=== PATIENT | male | born 1945 | race Caucasian/White ===

== ENCOUNTER 2019-09-11 17:40 | Inpatient (IN) ==
[2019-09-11] MEDS ORDERED: Ondansetron 4 MG/2 ML VIAL IVP STA (18:07)
[2019-09-11 18:08] LABS: Hematocrit 39.1 % (37.5-50.1); Hemoglobin 13.3 g/dL (12.9-16.9); Mean Corpuscular Hemoglobin 33.1 pg (28.0-33.3); Mean Corpuscular Volume 97.3 fL (83.0-100.0); Mean Platelet Volume 9.9 fL (9.4-12.4); Platelet Count 160 K/mcL (140-400); Red Blood Count 4.02 M/mcL (4.19-5.50); Red Cell Distribution Width 12.5 % (11.5-14.5); White Blood Count 20.1 K/mcL (4.3-11.1)
[2019-09-11] MEDS ORDERED: Ipratropium/Albuterol Neb 3 ML IH ONE (18:11)
[2019-09-11] MEDS ORDERED: Piperacillin/Tazobactam 3.375 GM in Water for inj. (sterile) 20 ML IVP ONE (18:17)
[2019-09-11 18:24] LABS: INR 1.4
[2019-09-11 18:26] LABS: Activated Partial Thrombo Time 30.9 Seconds (26.0-36.0)
[2019-09-11] MEDS: 0.9 % Sodium Chloride 1,000 ML IVC ONE ×2 (18:28→20:47)
[2019-09-11 18:30] LABS: Lymphocytes # 1.2 K/mcL (0.6-4.6); Neutrophils # 18.9 K/mcL (1.6-8.9); Platelet Estimate Normal (Normal)
[2019-09-11] MEDS ORDERED: 0.9 % Sodium Chloride 1,000 ML IVC ONE ×2 (18:38→22:19)
[2019-09-11] MEDS ORDERED: 0.9 % Sodium Chloride 500 ML IVC ONE (18:39)
[2019-09-11] MEDS ORDERED: 0.9 % Sodium Chloride 250 ML IVC ONE (18:40)
[2019-09-11 18:44] LABS: Alanine Aminotransferase 28 Units/L (7-52); Albumin 3.8 g/dL (3.5-5.7); Albumin/Globulin Ratio 1.2 (1.1-2.2); Alkaline Phosphatase 71 Units/L (34-104); Aspartate Amino Transferase 35 Units/L (13-39); BUN/Creatinine Ratio 17 (6-26); Bilirubin,Direct 0.2 mg/dL (0.0-0.2); Bilirubin,Indirect 0.4 mg/dL (0.0-1.0); Bilirubin,Total 0.6 mg/dL (0.3-1.0); Blood Urea Nitrogen 40 mg/dL (8-23); Carbon Dioxide 19 mEq/L (23-29); Chloride 100 mEq/L (98-107); Ethanol < 10 mg/dL (Less than 10); Globulin 3.3 g/dL (2.4-3.5); Glucose 150 mg/dL (70-105); Lipase 22 Units/L (11-82); Osmolality,Calculated 283 (280-300); Potassium 4.4 mEq/L (3.5-5.1); Sodium 130 mEq/L (136-145); Thyroid Stimulating Hormone 1.085 mcIU/mL (0.340-5.600); Total Protein 7.1 g/dL (6.4-8.9); Troponin I 0.65 ng/mL (< 0.04); eGFR For African Americans 34 (> 60); eGFR For Non-African Americans 28 (> 60)
[2019-09-11 19:43] LABS: Bilirubin,Urine Small (Negative); Blood,Urine Large (Negative); Clarity,Urine Turbid (Clear); Color,Urine Dark Yellow (Yellow); Glucose,Urine (UA) Normal (Normal); Ketones,Urine Trace mg/dL (Negative); Leukocyte Esterase,Urine Large (Negative); Nitrite,Urine Negative (Negative); PH,Urine 5.5 pH Units (5.0-8.0); Protein,Urine >=300 mg/dL (Neg-Trace); Specific Gravity,Urine 1.026 (1.010-1.025); Urobilinogen,Urine Normal (Normal)
[2019-09-11 19:45] LABS: Bacteria,Urine Moderate per hpf (None-Few); Hyaline Casts,Urine None Seen per lpf (None-Few); RBC,Urine 30-50 per hpf (0-3); Squamous Epithelial Cell,Urine Many per lpf (None-Few); WBC,Urine TNTC per hpf (0-3)
[2019-09-11 19:58] LABS: Amphetamine Screen,Urine Negative ng/mL (Cutoff=1000); Barbiturate Screen,Urine Negative ng/mL (Cutoff=200); Benzodiazepines Screen,Urine Negative ng/mL (Cutoff=200); Cannabinoid Screen,Urine Positive ng/mL (Cutoff = 50); Cocaine Screen,Urine Negative ng/mL (Cutoff= 300); Opiate Screen,Urine Negative ng/mL (Cutoff=300); Phencyclidine Screen,Urine Negative ng/mL (Cutoff=25)
[2019-09-11] MEDS ORDERED: 0.9 % Sodium Chloride 250 ML ONE (20:28)
[2019-09-11] MEDS ORDERED: *HR* Norepinephrine 4 MG/4 ML VIAL IVC ONE (20:28)
[2019-09-11] MEDS ORDERED: 0.9 % Sodium Chloride 1,000 ML ONE (20:40)
[2019-09-11] MEDS: Norepinephrine 4 MG in 0.9 % Sodium Chloride 250 ML IVC SCH (20:40)
[2019-09-11] MEDS ORDERED: Naloxone 0.4 MG/ML INJ IVP PRN (21:31)
[2019-09-11] MEDS ORDERED: Acetaminophen 325 MG TABLET PO PRN (22:19)
[2019-09-12] MEDS: 0.9 % Sodium Chloride 1,000 ML IVC SCH ×2 (01:06→07:01)
[2019-09-12] MEDS: Piperacillin/Tazobactam 3.375 GM in 0.9 % Sodium Chloride Mini Bag 100 ML IVPB SCH ×3 (01:43→18:44)
[2019-09-12] MEDS ORDERED: 0.9 % Sodium Chloride 500 ML IVC ONE (02:24)
[2019-09-12] MEDS ORDERED: Ibuprofen 400 MG TABLET PO PRN (02:25)
[2019-09-12 04:31] LABS: Eosinophils % 0.1 %; Mean Corpuscular Volume 100.3 fL (83.0-100.0); Red Cell Distribution Width 12.7 % (11.5-14.5)
[2019-09-12 04:35] LABS: Basophils % 0.1 %; Hematocrit 32.9 % (37.5-50.1); Hemoglobin 10.9 g/dL (12.9-16.9); Immature Granulocytes % 2.3 % (0-4); Immature Platelets 4.3 % (1.1-6.1); Lymphocytes % 4.9 %; Mean Corpuscular HGB Conc 33.1 g/dL (31.6-35.5); Mean Corpuscular Hemoglobin 33.2 pg (28.0-33.3); Mean Platelet Volume 10.3 fL (9.4-12.4); Monocytes # 0.7 K/mcL (0.0-1.3); Monocytes % 3.2 %; Neutrophils # 18.5 K/mcL (1.6-8.9); Platelet Count 108 K/mcL (140-400); Red Blood Count 3.28 M/mcL (4.19-5.50); Segmented Neutrophils % 89.4 %; White Blood Count 20.7 K/mcL (4.3-11.1)
[2019-09-12 04:46] LABS: Calcium 7.5 mg/dL (8.6-10.3); Potassium 4.2 mEq/L (3.5-5.1)
[2019-09-12] MEDS ORDERED: 0.9 % Sodium Chloride 1,000 ML IVC ONE (05:08)
[2019-09-12] MEDS ORDERED: Hydrocortisone Sodium Succ 100 MG/2 ML VIAL IVP ONE (05:25)
[2019-09-12] MEDS: *HR* Heparin 5,000 UNIT/ML VIAL SQ SCH ×2 (05:43→18:44)
[2019-09-12] MEDS: Norepinephrine 4 MG in 0.9 % Sodium Chloride 250 ML IVC SCH ×2 (05:59→09:44)
[2019-09-12] MEDS ORDERED: Saliva Stimulant 100ml BOTTLE PO PRN (08:15)
[2019-09-12] MEDS ORDERED: Aminoglycoside Consult 1 EACH MC ONE (09:19)
[2019-09-12 13:00] LABS: Calcium 7.1 mg/dL (8.6-10.3); Magnesium 1.2 mg/dL (1.6-2.6); Phosphorous 4.1 mg/dL (2.7-4.5); Potassium 5.3 mEq/L (3.5-5.1); Troponin I 2.32 ng/mL (< 0.04)
[2019-09-12] MEDS: Calcium Gluconate 1gm/50mL 1 GM/50 ML BAG IVPB SCH ×2 (14:58→16:06)
[2019-09-12] MEDS: Sodium Bicarbonate 75 MEQ in 0.45 % Sodium Chloride 1,000 ML IVC SCH (18:45)
[2019-09-12] MEDS ORDERED: Perflutren Lipid Microsphere 1.3 ML in 0.9 % Sodium Chloride 8.7 ML IVP ONE (18:51)
[2019-09-12 18:54] LABS: Hepatitis B Surface Antibody < 3.10 mIU/mL
[2019-09-12] MEDS ORDERED: *HR* Heparin 5,000 UNIT/ML VIAL IVP PRN ×2 (18:54)
[2019-09-12] MEDS ORDERED: *HR* Heparin 5,000 UNIT/ML VIAL IVP ONE (18:54)
[2019-09-12 19:04] LABS: Hepatitis B Surface Antigen Nonreactive (Nonreactive)
[2019-09-12] MEDS ORDERED: Heparin 25,000 UNIT/250 ML D5W 25,000 UNIT/250 ML IV.SOLN IVC SCH (19:30)
[2019-09-12 19:32] LABS: Hepatitis B Core IgM Nonreactive (Nonreactive)
[2019-09-12] MEDS: Ipratropium/Albuterol Neb 3 ML IH PRN (20:36)
[2019-09-12 20:51] LABS: Potassium 4.8 mEq/L (3.5-5.1)
[2019-09-12 21:22] LABS: Hematocrit 36.9 % (37.5-50.1); Hemoglobin 12.3 g/dL (12.9-16.9); Immature Platelets 7.1 % (1.1-6.1); Mean Corpuscular HGB Conc 33.3 g/dL (31.6-35.5); Mean Corpuscular Hemoglobin 33.4 pg (28.0-33.3); Mean Corpuscular Volume 100.3 fL (83.0-100.0); Red Blood Count 3.68 M/mcL (4.19-5.50); Red Cell Distribution Width 13.2 % (11.5-14.5); White Blood Count 29.1 K/mcL (4.3-11.1)
[2019-09-12 21:27] LABS: Platelet Count 90 K/mcL (140-400)
[2019-09-12 21:36] LABS: INR 1.7; Lymphocytes # 2.9 K/mcL (0.6-4.6); Neutrophils # 26.2 K/mcL (1.6-8.9); Platelet Estimate Decreased (Normal); Prothrombin Time 19.3 Seconds (9.4-12.1)
[2019-09-12] MEDS ORDERED: Acetaminophen 325 MG TABLET PO PRN (23:32)
[2019-09-13] MEDS: Piperacillin/Tazobactam 3.375 GM in 0.9 % Sodium Chloride Mini Bag 100 ML IVPB SCH ×3 (01:56→16:49)
[2019-09-13 02:23] LABS: Red Cell Distribution Width 13.2 % (11.5-14.5)
[2019-09-13 02:25] LABS: Hematocrit 33.5 % (37.5-50.1); Hemoglobin 11.8 g/dL (12.9-16.9); Immature Platelets 7.4 % (1.1-6.1); Mean Corpuscular HGB Conc 35.2 g/dL (31.6-35.5); Mean Corpuscular Hemoglobin 33.7 pg (28.0-33.3); Mean Corpuscular Volume 95.7 fL (83.0-100.0); Mean Platelet Volume 10.8 fL (9.4-12.4); White Blood Count 24.2 K/mcL (4.3-11.1)
[2019-09-13 02:26] LABS: Platelet Count 69 K/mcL (140-400)
[2019-09-13] MEDS ORDERED: hydrOXYzine pamoate 25 MG CAPSULE PO PRN (02:36)
[2019-09-13 02:38] LABS: Lymphocytes # 0.7 K/mcL (0.6-4.6); Monocytes # 0.2 K/mcL (0.0-1.3); Neutrophils # 23.2 K/mcL (1.6-8.9); Platelet Estimate Marked Decrease (Normal)
[2019-09-13 02:43] LABS: Albumin 3.1 g/dL (3.5-5.7); Albumin/Globulin Ratio 1.1 (1.1-2.2); Bilirubin,Total 0.4 mg/dL (0.3-1.0); Calcium 7.7 mg/dL (8.6-10.3); Globulin 2.8 g/dL (2.4-3.5); Magnesium 1.7 mg/dL (1.6-2.6); Potassium 4.4 mEq/L (3.5-5.1); Total Protein 5.9 g/dL (6.4-8.9); Uric Acid 6.1 mg/dL (2.3-7.6)
[2019-09-13 02:53] LABS: Troponin I 49.92 ng/mL (< 0.04)
[2019-09-13] MEDS: Sodium Bicarbonate 75 MEQ in 0.45 % Sodium Chloride 1,000 ML IVC SCH ×2 (04:42→17:15)
[2019-09-13 04:48] LABS: Complement C3 97 mg/dL (87-200)
[2019-09-13] MEDS ORDERED: MethylPREDNISolone 40 MG/ML VIAL IVP SCH (06:00)
[2019-09-13 07:23] LABS: Enterococcus by PCR Not Detected (Not Detect); blaKPC Carbapenem-Resist Gene Not Detected (Not Detect); mecA Methicillin-Resist Gene Not Detected (Not Detect); vanA/B Vancomycin-Resist Genes Not Detected (Not Detect)
[2019-09-13 07:24] LABS: Acinetobacter baumannii by PCR Not Detected (Not Detect); Candida albicans by PCR Not Detected (Not Detect); Candida glabrata by PCR Not Detected (Not Detect); Candida krusei by PCR Not Detected (Not Detect); Candida parapsilosis by PCR Not Detected (Not Detect); Candida tropicalis by PCR Not Detected (Not Detect); Enterobacter cloacae Cmplx PCR DETECTED (Not Detect); Escherichia coli by PCR Not Detected (Not Detect); Klebsiella oxytoca by PCR Not Detected (Not Detect); Klebsiella pneumoniae by PCR Not Detected (Not Detect); Proteus by PCR Not Detected (Not Detect); Pseudomonas aeruginosa by PCR Not Detected (Not Detect); Serratia marcescens by PCR Not Detected (Not Detect); Staphylococcus aureus by PCR Not Detected (Not Detect); Staphylococcus by PCR Not Detected (Not Detect); Streptococcus agalactiae(B)PCR Not Detected (Not Detect); Streptococcus by PCR Not Detected (Not Detect); Streptococcus pneumoniae PCR Not Detected (Not Detect); Streptococcus pyogenes (A) PCR Not Detected (Not Detect)
[2019-09-13] MEDS ORDERED: Temazepam 15 MG CAPSULE PO PRN (08:26)
[2019-09-13] MEDS: Argatroban 250 MG in 0.9 % Sodium Chloride 250 ML IVC SCH (09:46)
[2019-09-13 12:13] LABS: Hemoglobin 11.7 g/dL (12.9-16.9); Red Cell Distribution Width 13.2 % (11.5-14.5)
[2019-09-13 12:15] LABS: Hematocrit 32.9 % (37.5-50.1); Immature Platelets 7.8 % (1.1-6.1); Mean Corpuscular HGB Conc 35.6 g/dL (31.6-35.5); Mean Corpuscular Hemoglobin 33.5 pg (28.0-33.3); Mean Corpuscular Volume 94.3 fL (83.0-100.0); Mean Platelet Volume 11.2 fL (9.4-12.4); Monocytes # 0.4 K/mcL (0.0-1.3); Platelet Count 63 K/mcL (140-400); Red Blood Count 3.49 M/mcL (4.19-5.50)
[2019-09-13 12:32] LABS: Potassium 4.1 mEq/L (3.5-5.1)
[2019-09-13] MEDS ORDERED: Aspirin Enteric Coated 81 MG Tablet PO ONE (13:00)
[2019-09-13 13:02] LABS: Neutrophils # 17.6 K/mcL (1.6-8.9)
[2019-09-13 13:03] LABS: Anisocytosis 1+ (Not Present); Platelet Estimate Decreased (Normal)
[2019-09-13] MEDS: Ipratropium/Albuterol Neb 3 ML IH PRN (17:56)
[2019-09-13] MEDS ORDERED: Levalbuterol Neb 1.25 MG/3 ML IH PRN (18:11)
[2019-09-14] MEDS: Piperacillin/Tazobactam 3.375 GM in 0.9 % Sodium Chloride Mini Bag 100 ML IVPB SCH (02:02)
[2019-09-14 05:02] LABS: Basophils % 0.2 %; Hematocrit 30.7 % (37.5-50.1); Immature Granulocytes % 0.6 % (0-4); Immature Platelets 8.7 % (1.1-6.1); Lymphocytes # 0.5 K/mcL (0.6-4.6); Lymphocytes % 2.8 %; Mean Corpuscular HGB Conc 35.8 g/dL (31.6-35.5); Mean Corpuscular Hemoglobin 33.5 pg (28.0-33.3); Mean Corpuscular Volume 93.6 fL (83.0-100.0); Mean Platelet Volume 11.5 fL (9.4-12.4); Monocytes # 0.8 K/mcL (0.0-1.3); Nucleated Red Blood Cells 0.3 /100 WBC (0); Red Blood Count 3.28 M/mcL (4.19-5.50); Red Cell Distribution Width 13.2 % (11.5-14.5); Retculocyte # 0.04 M/mcL (0.05-0.10); Reticulocyte % 1.2 % (1.6-2.8); Segmented Neutrophils % 92.4 %; White Blood Count 19.1 K/mcL (4.3-11.1)
[2019-09-14 05:09] LABS: Neutrophils # 17.7 K/mcL (1.6-8.9); Platelet Count 67 K/mcL (140-400)
[2019-09-14 05:18] LABS: % Iron Saturation 61 % (20-55); Iron 91 mcg/dL (65-175); Lactate Dehydrogenase 378 Units/L (140-271); Transferrin 107 mg/dL (203-362)
[2019-09-14 05:19] LABS: Calcium 8.6 mg/dL (8.6-10.3); Potassium 3.9 mEq/L (3.5-5.1)
[2019-09-14 05:21] LABS: Troponin I 17.25 ng/mL (< 0.04)
[2019-09-14 05:35] LABS: Ferritin 314 ng/mL (20-250); Platelet Estimate Decreased (Normal)
[2019-09-14 05:44] LABS: Folate 15.5 ng/mL (3.0-16.0); Vitamin B12 > 1500 pg/mL (250-1100)
[2019-09-14] MEDS: Aspirin Enteric Coated 81 MG Tablet PO SCH (07:27)
[2019-09-14] MEDS ORDERED: Furosemide 20 MG/2 ML VIAL IVP ONE (08:40)
[2019-09-14] MEDS: Argatroban 250 MG in 0.9 % Sodium Chloride 250 ML IVC SCH (23:19)
[2019-09-14] MEDS: Sodium Bicarbonate 75 MEQ in 0.45 % Sodium Chloride 1,000 ML IVC SCH (23:19)
[2019-09-14] MEDS: Norepinephrine 4 MG in 0.9 % Sodium Chloride 250 ML IVC SCH (23:20)
[2019-09-15 06:29] LABS: Hematocrit 30.6 % (37.5-50.1); Hemoglobin 10.9 g/dL (12.9-16.9); Immature Platelets 7.3 % (1.1-6.1); Mean Corpuscular HGB Conc 35.6 g/dL (31.6-35.5); Mean Corpuscular Hemoglobin 33.4 pg (28.0-33.3); Mean Corpuscular Volume 93.9 fL (83.0-100.0); Mean Platelet Volume 11.6 fL (9.4-12.4); Nucleated Red Blood Cells 0.2 /100 WBC (0); Red Blood Count 3.26 M/mcL (4.19-5.50); Red Cell Distribution Width 13.3 % (11.5-14.5); White Blood Count 22.7 K/mcL (4.3-11.1)
[2019-09-15 06:31] LABS: Platelet Count 71 K/mcL (140-400)
[2019-09-15 06:46] LABS: Bilirubin,Total 0.7 mg/dL (0.3-1.0); Calcium 8.7 mg/dL (8.6-10.3); Magnesium 1.9 mg/dL (1.6-2.6); Phosphorous 2.9 mg/dL (2.7-4.5); Potassium 3.8 mEq/L (3.5-5.1)
[2019-09-15 07:13] LABS: Lymphocytes # 1.8 K/mcL (0.6-4.6); Neutrophils # 20.4 K/mcL (1.6-8.9)
[2019-09-15 07:14] LABS: Platelet Estimate Decreased (Normal)
[2019-09-15 07:29] LABS: ANA IgG by ELISA NONE DETECTED (None Detected)
[2019-09-15 07:50] LABS: Serine Protease-3 Antibody 1 AU/mL (0-19)
[2019-09-15 07:52] LABS: SSA 52 (Anti-RO) Antibody 1 AU/mL (0-40); SSA 60 (Anti-RO) Antibody 0 AU/mL (0-40)
[2019-09-15] MEDS: Aspirin Enteric Coated 81 MG Tablet PO SCH (09:51)
[2019-09-15] MEDS: Metoprolol XL (24 HR) Succ 25 MG TAB.ER.24H PO SCH (09:51)
[2019-09-15] MEDS: Cefepime HCl 2,000 MG in 0.9 % Sodium Chloride Mini Bag 100 ML IVPB SCH ×2 (13:35→18:02)
[2019-09-15] MEDS ORDERED: Sodium Bicarbonate 150 MEQ in D5% in Water 850 ML IVC SCH (15:30)
[2019-09-15 15:31] LABS: Acinetobacter baumannii by PCR Not Detected (Not Detect); Candida albicans by PCR Not Detected (Not Detect); Candida glabrata by PCR Not Detected (Not Detect); Candida krusei by PCR Not Detected (Not Detect); Candida parapsilosis by PCR Not Detected (Not Detect); Candida tropicalis by PCR Not Detected (Not Detect); Enterobacter cloacae Cmplx PCR DETECTED (Not Detect); Enterococcus by PCR Not Detected (Not Detect); Escherichia coli by PCR Not Detected (Not Detect); Klebsiella oxytoca by PCR Not Detected (Not Detect); Klebsiella pneumoniae by PCR Not Detected (Not Detect); Proteus by PCR Not Detected (Not Detect); Pseudomonas aeruginosa by PCR Not Detected (Not Detect); Serratia marcescens by PCR Not Detected (Not Detect); Staphylococcus aureus by PCR Not Detected (Not Detect); Staphylococcus by PCR Not Detected (Not Detect); Streptococcus agalactiae(B)PCR Not Detected (Not Detect); Streptococcus by PCR Not Detected (Not Detect); Streptococcus pneumoniae PCR Not Detected (Not Detect); Streptococcus pyogenes (A) PCR Not Detected (Not Detect); blaKPC Carbapenem-Resist Gene Not Detected (Not Detect)
[2019-09-15 20:00] LABS: Kappa Qnt Free Light Chains 8.73 mg/dL (0.33-1.94); Lambda Qnt Free Light Chains 2.83 mg/dL (0.57-2.63)
[2019-09-15 20:48] LABS: Urine Collection Volume RANDOM mL
[2019-09-15] MEDS: *HR* Acetylcysteine 20% 600 MG/3 ML ORAL SYRINGE PO SCH (23:29)
[2019-09-16 00:43] LABS: Alpha 2 Globulin (PEP) 0.84 g/dL (0.48-1.05); Beta Globulin (PEP) 0.59 g/dL (0.48-1.10)
[2019-09-16 04:17] LABS: Immature Granulocytes % 3.8 % (0-4); Mean Platelet Volume 11.4 fL (9.4-12.4); Red Cell Distribution Width 13.2 % (11.5-14.5)
[2019-09-16 04:19] LABS: Basophils # 0.1 K/mcL (0.0-0.2); Basophils % 0.3 %; Eosinophils # 0.3 K/mcL (0.0-0.6); Eosinophils % 1.7 %; Hematocrit 32.8 % (37.5-50.1); Hemoglobin 11.6 g/dL (12.9-16.9); Immature Platelets 7.4 % (1.1-6.1); Lymphocytes % 5.2 %; Mean Corpuscular HGB Conc 35.4 g/dL (31.6-35.5); Mean Corpuscular Hemoglobin 33.4 pg (28.0-33.3); Mean Corpuscular Volume 94.5 fL (83.0-100.0); Monocytes # 1.5 K/mcL (0.0-1.3); Neutrophils # 15.3 K/mcL (1.6-8.9); Nucleated Red Blood Cells 0.4 /100 WBC (0); Red Blood Count 3.47 M/mcL (4.19-5.50); White Blood Count 18.9 K/mcL (4.3-11.1)
[2019-09-16 04:22] LABS: Platelet Count 85 K/mcL (140-400)
[2019-09-16] MEDS: Cefepime HCl 2,000 MG in 0.9 % Sodium Chloride Mini Bag 100 ML IVPB SCH (05:57)
[2019-09-16] MEDS ORDERED: 0.9 % Sodium Chloride 2,000 ML ONE (07:10)
[2019-09-16] MEDS ORDERED: Heparin 1,000 UNITS/500 mL 500 ML ONE (07:10)
[2019-09-16] MEDS ORDERED: ISOVUE-370 200 ML INFUS..BTL ONE ×3 (07:11→07:54)
[2019-09-16] MEDS ORDERED: Nitroglycerin 1,000 MCG/10 ML VIAL IV ONE (07:11)
[2019-09-16] MEDS ORDERED: *HR* Heparin 10,000 UNIT/10 ML VIAL ONE (07:15)
[2019-09-16] MEDS ORDERED: *HR* Midazolam HCl 2 MG/2 ML VIAL ONE ×2 (07:54→11:36)
[2019-09-16] MEDS ORDERED: *HR* FentaNYL (PF) 100 MCG/2 ML VIAL ONE ×2 (07:54→11:36)
[2019-09-16 08:29] LABS: Calcium 8.7 mg/dL (8.6-10.3); Potassium 3.8 mEq/L (3.5-5.1)
[2019-09-16] MEDS: Aspirin Enteric Coated 81 MG Tablet PO SCH (09:30)
[2019-09-16] MEDS: Metoprolol XL (24 HR) Succ 25 MG TAB.ER.24H PO SCH (09:31)
[2019-09-16 10:24] LABS: IFE Reflexed NOT DONE
[2019-09-16] MEDS ORDERED: 0.9 % Sodium Chloride 500 ML ONE (11:49)
[2019-09-16] MEDS ORDERED: 0.9 % Sodium Chloride 1,000 ML ONE (11:54)
[2019-09-16 13:47] LABS: HCV Quant Log NOT DETECTED log IU/mL
[2019-09-16] MEDS: *HR* Acetylcysteine 20% 600 MG/3 ML ORAL SYRINGE PO SCH ×2 (16:42→23:19)
[2019-09-16] MEDS ORDERED: Warfarin perPT PO PRN (18:00)
[2019-09-17] MEDS ORDERED: Cefepime HCl 2,000 MG in 0.9 % Sodium Chloride Mini Bag 100 ML IVPB SCH (06:00)
[2019-09-17 06:39] LABS: Hematocrit 33.1 % (37.5-50.1); Hemoglobin 11.6 g/dL (12.9-16.9); Mean Corpuscular Hemoglobin 32.8 pg (28.0-33.3); Mean Corpuscular Volume 93.5 fL (83.0-100.0); Mean Platelet Volume 11.4 fL (9.4-12.4); Monocytes # 1.6 K/mcL (0.0-1.3); Nucleated Red Blood Cells 0.2 /100 WBC (0); Platelet Count 140 K/mcL (140-400); Red Blood Count 3.54 M/mcL (4.19-5.50); Red Cell Distribution Width 12.9 % (11.5-14.5); White Blood Count 19.7 K/mcL (4.3-11.1)
[2019-09-17 07:47] LABS: BUN/Creatinine Ratio 27 (6-26); Blood Urea Nitrogen 37 mg/dL (8-23); Calcium 8.4 mg/dL (8.6-10.3); Carbon Dioxide 21 mEq/L (23-29); Chloride 105 mEq/L (98-107); Glucose 112 mg/dL (70-105); Osmolality,Calculated 287 (280-300); Potassium 3.6 mEq/L (3.5-5.1); Sodium 134 mEq/L (136-145); eGFR For African Americans > 60 (> 60); eGFR For Non-African Americans 51 (> 60)
[2019-09-17 08:02] LABS: Lymphocytes # 0.8 K/mcL (0.6-4.6); Neutrophils # 17.3 K/mcL (1.6-8.9); Platelet Estimate Normal (Normal)
[2019-09-17 08:33] LABS: HCV Quant Interpretation NOT DETECTED (Not Detected)
[2019-09-17] MEDS ORDERED: Metoprolol XL (24 HR) Succ 25 MG TAB.ER.24H PO SCH (09:00)
[2019-09-17] MEDS: Aspirin Enteric Coated 81 MG Tablet PO SCH (09:35)
[2019-09-17] MEDS: *HR* Acetylcysteine 20% 600 MG/3 ML ORAL SYRINGE PO SCH (09:36)
[2019-09-17 12:51] LABS: INR 1.9; Prothrombin Time 21.3 Seconds (9.4-12.1)
[2019-09-17] MEDS ORDERED: *HR* Warfarin 7.5 MG TABLET PO ONE (18:00)
[2019-09-17] MEDS ORDERED: Warfarin perPT PO PRN (18:00)
[2019-09-17] MEDS ORDERED: *HR* Warfarin 5 MG TABLET PO ONE (18:00)
[2019-09-17] MEDS: cefTRIAXone 2,000 MG in Water for inj. (sterile) 20 ML IVP SCH (20:33)
[2019-09-17] MEDS: levoFLOXacin 750 MG/150 ML 750 MG/150 ML BAG IVPB SCH (20:33)
[2019-09-18 05:10] LABS: INR 1.5; Prothrombin Time 16.7 Seconds (9.4-12.1)
[2019-09-18 05:15] LABS: Hemoglobin 11.2 g/dL (12.9-16.9); Mean Corpuscular HGB Conc 33.9 g/dL (31.6-35.5); Mean Corpuscular Hemoglobin 32.7 pg (28.0-33.3); Mean Corpuscular Volume 96.5 fL (83.0-100.0); Platelet Count 182 K/mcL (140-400); Red Blood Count 3.42 M/mcL (4.19-5.50); Red Cell Distribution Width 12.8 % (11.5-14.5); White Blood Count 21.7 K/mcL (4.3-11.1)
[2019-09-18 05:31] LABS: Calcium 8.4 mg/dL (8.6-10.3); Potassium 3.6 mEq/L (3.5-5.1)
[2019-09-18] MEDS: Metoprolol XL (24 HR) Succ 25 MG TAB.ER.24H PO SCH (05:54)
[2019-09-18 06:07] LABS: Lymphocytes # 1.7 K/mcL (0.6-4.6); Monocytes # 0.4 K/mcL (0.0-1.3); Neutrophils # 19.5 K/mcL (1.6-8.9)
[2019-09-18 06:08] LABS: Platelet Estimate Normal (Normal); Toxic Granulation Present (Not Present)
[2019-09-18] MEDS ORDERED: 0.9 % Sodium Chloride 1,000 ML IVC SCH (08:00)
[2019-09-18] MEDS: Aspirin Enteric Coated 81 MG Tablet PO SCH (08:01)
[2019-09-18] MEDS ORDERED: Metoprolol XL (24 HR) Succ 25 MG TAB.ER.24H PO SCH (09:00)
[2019-09-18 15:10] LABS: Adenovirus Not Detected (Not Detect); Bordetella Pertussis Not Detected (Not Detect); Chlamydophila pneumoniae Not Detected (Not Detect); Coronavirus 229E Not Detected (Not Detect); Coronavirus HKU1 Not Detected (Not Detect); Coronavirus NL63 Not Detected (Not Detect); Coronavirus OC43 Not Detected (Not Detect); Human Metapneumovirus Not Detected (Not Detect); Human Rhinovirus/Enterovirus Not Detected (Not Detect); Influenza A Subtype 2009 H1 Not Detected (Not Detect); Influenza A Untypeable Not Detected (Not Detect); Influenza B Not Detected (Not Detect); Mycoplasma pneumoniae Not Detected (Not Detect); Parainfluenza Virus 1 Not Detected (Not Detect); Parainfluenza Virus 2 Not Detected (Not Detect); Parainfluenza Virus 3 Not Detected (Not Detect); Parainfluenza Virus 4 Not Detected (Not Detect); Respiratory Syncytial Virus Not Detected (Not Detect)
[2019-09-18] MEDS ORDERED: *HR* Warfarin 5 MG TABLET PO ONE (18:00)
[2019-09-18] MEDS: cefTRIAXone 2,000 MG in Water for inj. (sterile) 20 ML IVP SCH (21:28)
[2019-09-18] MEDS: levoFLOXacin 750 MG/150 ML 750 MG/150 ML BAG IVPB SCH (21:39)
[2019-09-19 04:41] LABS: INR 1.6
[2019-09-19 04:48] LABS: Hematocrit 32.5 % (37.5-50.1); Hemoglobin 11.2 g/dL (12.9-16.9); Mean Corpuscular HGB Conc 34.5 g/dL (31.6-35.5); Mean Corpuscular Hemoglobin 32.9 pg (28.0-33.3); Mean Corpuscular Volume 95.6 fL (83.0-100.0); Mean Platelet Volume 10.6 fL (9.4-12.4); Platelet Count 189 K/mcL (140-400); Red Cell Distribution Width 12.8 % (11.5-14.5)
[2019-09-19 04:58] LABS: BUN/Creatinine Ratio 24 (6-26); Blood Urea Nitrogen 32 mg/dL (8-23); Calcium 8.4 mg/dL (8.6-10.3); Carbon Dioxide 21 mEq/L (23-29); Chloride 104 mEq/L (98-107); Glucose 111 mg/dL (70-105); Osmolality,Calculated 284 (280-300); Potassium 3.8 mEq/L (3.5-5.1); Sodium 133 mEq/L (136-145); eGFR For African Americans > 60 (> 60); eGFR For Non-African Americans 51 (> 60)
[2019-09-19 05:33] LABS: Eosinophils # 0.4 K/mcL (0.0-0.6); Lymphocytes # 3.1 K/mcL (0.6-4.6); Monocytes # 0.4 K/mcL (0.0-1.3); Neutrophils # 16.7 K/mcL (1.6-8.9); Platelet Estimate Normal (Normal); Reactive Lymphocytes Present (Not Present)
[2019-09-19] MEDS: Metoprolol XL (24 HR) Succ 25 MG TAB.ER.24H PO SCH (06:19)
[2019-09-19] MEDS: Aspirin Enteric Coated 81 MG Tablet PO SCH (08:27)
[2019-09-19] MEDS ORDERED: *HR* Warfarin 5 MG TABLET PO ONE (18:00)
[2019-09-19] MEDS: cefTRIAXone 2,000 MG in Water for inj. (sterile) 20 ML IVP SCH (20:57)
[2019-09-19] MEDS: levoFLOXacin 750 MG/150 ML 750 MG/150 ML BAG IVPB SCH (20:58)
[2019-09-20 05:27] LABS: INR 1.6; Prothrombin Time 18.1 Seconds (9.4-12.1)
[2019-09-20 05:28] LABS: Hematocrit 31.3 % (37.5-50.1); Hemoglobin 10.8 g/dL (12.9-16.9); Mean Corpuscular HGB Conc 34.5 g/dL (31.6-35.5); Mean Corpuscular Hemoglobin 32.4 pg (28.0-33.3); Mean Platelet Volume 10.8 fL (9.4-12.4); Platelet Count 202 K/mcL (140-400); Red Blood Count 3.33 M/mcL (4.19-5.50); Red Cell Distribution Width 12.9 % (11.5-14.5); White Blood Count 18.1 K/mcL (4.3-11.1)
[2019-09-20 05:44] LABS: BUN/Creatinine Ratio 23 (6-26); Blood Urea Nitrogen 29 mg/dL (8-23); Calcium 8.5 mg/dL (8.6-10.3); Carbon Dioxide 20 mEq/L (23-29); Chloride 104 mEq/L (98-107); Glucose 99 mg/dL (70-105); Osmolality,Calculated 280 (280-300); Potassium 4.1 mEq/L (3.5-5.1); Sodium 132 mEq/L (136-145); eGFR For African Americans > 60 (> 60); eGFR For Non-African Americans 56 (> 60)
[2019-09-20 06:03] LABS: Lymphocytes # 2.2 K/mcL (0.6-4.6); Monocytes # 0.7 K/mcL (0.0-1.3); Neutrophils # 15.2 K/mcL (1.6-8.9); Platelet Estimate Normal (Normal)
[2019-09-20] MEDS: Metoprolol XL (24 HR) Succ 25 MG TAB.ER.24H PO SCH (06:12)
[2019-09-20 06:57] VITALS: BP 117/85
[2019-09-20] MEDS: Aspirin Enteric Coated 81 MG Tablet PO SCH (08:22)
[2019-09-20] MEDS ORDERED: FLU Vac QV 19-20 (6Month+)/PF 0.5 ML SYRINGE IM ONE (10:17)
[2019-09-20] MEDS ORDERED: *HR* Warfarin 7.5 MG TABLET PO ONE (18:00)
== END 2019-09-20 10:47 | disposition home or self-care (01) | DRG 698 ==
LOC: EMEROOARM 17:40 → ICNU 21:18 → SUATTDRO 21:18 → ICNU 22:08 → 2NENU 09-14 11:50
PROVIDERS: ADMIT Internal Medicine; ATTEND Internal Medicine

== ENCOUNTER 2019-10-19 09:32 | Observation (INO) ==
[2019-10-19 10:14] LABS: Basophils % 0.4 %; Eosinophils # 0.3 K/mcL (0.0-0.6); Eosinophils % 2.5 %; Hematocrit 37.7 % (37.5-50.1); Hemoglobin 12.5 g/dL (12.9-16.9); Immature Granulocytes % 0.2 % (0-4); Lymphocytes % 19.7 %; Mean Corpuscular HGB Conc 33.2 g/dL (31.6-35.5); Mean Corpuscular Hemoglobin 31.9 pg (28.0-33.3); Mean Corpuscular Volume 96.2 fL (83.0-100.0); Mean Platelet Volume 10.1 fL (9.4-12.4); Monocytes # 1.2 K/mcL (0.0-1.3); Monocytes % 12.3 %; Neutrophils # 6.5 K/mcL (1.6-8.9); Platelet Count 208 K/mcL (140-400); Red Blood Count 3.92 M/mcL (4.19-5.50); Red Cell Distribution Width 14.2 % (11.5-14.5); Segmented Neutrophils % 64.9 %
[2019-10-19 10:19] LABS: INR 1.7; Prothrombin Time 19.7 Seconds (9.4-12.1)
[2019-10-19 10:22] LABS: Activated Partial Thrombo Time 37.5 Seconds (26.0-36.0)
[2019-10-19 10:34] LABS: BUN/Creatinine Ratio 21 (6-26); Blood Urea Nitrogen 29 mg/dL (8-23); Calcium 9.6 mg/dL (8.6-10.3); Carbon Dioxide 22 mEq/L (23-29); Chloride 105 mEq/L (98-107); Glucose 92 mg/dL (70-105); Osmolality,Calculated 285 (280-300); Potassium 4.4 mEq/L (3.5-5.1); Sodium 135 mEq/L (136-145); eGFR For African Americans > 60 (> 60); eGFR For Non-African Americans 50 (> 60)
[2019-10-19] MEDS ORDERED: *HR* Promethazine 25 MG/ML VIAL IVP PRN (12:27)
[2019-10-19] MEDS ORDERED: Acetaminophen 325 MG TABLET PO PRN (12:27)
[2019-10-19] MEDS ORDERED: Mag Hydrox/Al Hydrox/Simeth 30 ML UDC PO PRN (12:27)
[2019-10-19] MEDS ORDERED: MOM Conc 10 ML UD.LIQ PO PRN (12:27)
[2019-10-19] MEDS ORDERED: Ondansetron 4 MG/2 ML VIAL IVP PRN (12:27)
[2019-10-19] MEDS ORDERED: Naloxone 0.4 MG/ML INJ IVP PRN (12:27)
[2019-10-19 13:26] LABS: Hematocrit 36.9 % (37.5-50.1); Hemoglobin 12.3 g/dL (12.9-16.9)
[2019-10-20 01:30] LABS: Hematocrit 34.9 % (37.5-50.1); Hemoglobin 11.2 g/dL (12.9-16.9)
[2019-10-20 01:38] LABS: INR 1.9; Prothrombin Time 21.8 Seconds (9.4-12.1)
[2019-10-20 01:51] LABS: BUN/Creatinine Ratio 20 (6-26); Blood Urea Nitrogen 20 mg/dL (8-23); Calcium 9.4 mg/dL (8.6-10.3); Carbon Dioxide 18 mEq/L (23-29); Chloride 105 mEq/L (98-107); Glucose 94 mg/dL (70-105); Osmolality,Calculated 278 (280-300); Potassium 3.8 mEq/L (3.5-5.1); Sodium 133 mEq/L (136-145); eGFR For African Americans > 60 (> 60); eGFR For Non-African Americans > 60 (> 60)
[2019-10-20] MEDS ORDERED: Metoprolol XL (24 HR) Succ 25 MG TAB.ER.24H PO SCH (06:00)
[2019-10-20] MEDS ORDERED: *HR* FentaNYL (PF) 100 MCG/2 ML VIAL ONE (09:20)
[2019-10-20] MEDS ORDERED: *HR* Midazolam HCl 5 MG/5 ML VIAL IVP ONE (09:21)
[2019-10-20] MEDS ORDERED: Tetracaine/Benzocaine/Butamben 1 SPRAY AEROSOL MM ONE (10:14)
[2019-10-20] MEDS ORDERED: 0.9 % Sodium Chloride 1,000 ML IVC SCH (10:15)
[2019-10-20] MEDS: *HR* FentaNYL (PF) 100 MCG/2 ML VIAL IVP ONE ×2 (10:17→10:51)
[2019-10-20] MEDS: *HR* Midazolam HCl 5 MG/5 ML VIAL IVP ONE ×2 (10:17→10:51)
[2019-10-20 11:56] VITALS: BP 89/65
[2019-10-20 13:12] LABS: Hematocrit 36.6 % (37.5-50.1); Hemoglobin 12.2 g/dL (12.9-16.9)
== END 2019-10-20 14:23 | disposition home or self-care (01) ==
LOC: EMEROOARM 09:32 → 3ANU 09:32 → 2NENU 19:17
PROVIDERS: ADMIT Internal Medicine; ATTEND Internal Medicine